=== PATIENT | male | born 2000 | race Two or more races ===

== ENCOUNTER 2023-03-14 18:26 | Emergency (ER) | payer BC, OTHER ==
[~2023-03-14] VITALS: Ht 182.9 cm; Wt 49.5 kg
[2023-03-14] MEDS ORDERED: SODIUM CHLORIDE 0.9% 1,000 ML IVB ONE (19:00)
[2023-03-14 19:25] LABS: Basophils # (auto) 0 10 ^3/uL (0-0.2); Basophils % (auto) 0.3 % (0.0-2.0); Eosinophils # (auto) 0.1 10 ^3/uL (0-0.8); Eosinophils % (auto) 0.4 % (0.0-7.0); Hematocrit 49.2 % (41.0-53.0); Hemoglobin 16.2 g/dL (13.5-17.5); Lymphocytes # (auto) 1.4 10 ^3/uL (0.4-5.4); Lymphocytes % (auto) 9.2 % (10.0-50.0); Mean Corpuscular Hemoglobin 27.4 pg (28.0-32.0); Mean Corpuscular Hgb Conc. 32.9 g/dL (32.0-36.0); Mean Corpuscular Volume 83.4 fL (80.0-100.0); Monocytes # (auto) 0.9 10 ^3/uL (0-1.3); Neutrophils # (auto) 13.1 10 ^3/uL (1.6-8.6); Neutrophils % (auto) 84.1 % (37.0-80.0); Red Blood Cells 5.91 10^6/uL (4.5-5.90); White Blood Cell 15.6 10^3/uL (4.4-10.8)
[2023-03-14 19:34] LABS: Albumin 3.9 g/dL (3.4-5.0); Anion Gap 7 (5-15); Blood Alcohol < 3.0 mg/dL (<10); Blood Urea Nitrogen 11 mg/dL (7-18); Calcium 8.9 mg/dL (8.5-10.1); Carbon Dioxide 24 mmol/L (21-32); Chloride 105 mmol/L (98-107); Glucose 103 mg/dL (74-106); Magnesium 2.7 mg/dL (1.6-2.6); Sodium 136 mmol/L (136-145)
[2023-03-14 19:40] LABS: Alanine Aminotransferase 49 U/L (16-61); Alkaline Phosphatase 55 U/L (45-117); Aspartate Aminotransferase 45 U/L (15-37); BUN/Creatinine Ratio 10.8 (10.0-20.0); Bilirubin, Total 0.3 mg/dL (0.2-1.0); GFR African American 117 mL/min; GFR Non-African American 97 mL/min; Total Protein 7.9 g/dL (6.4-8.2)
[2023-03-14 21:58] LABS: Urine Bacteria NONE SEEN /hpf (None Seen); Urine Blood Negative /uL (Negative); Urine Mucus FEW (None Seen); Urine Specific Gravity 1.028 (1.001-1.035); Urine WBC 1 /hpf (0 - 3)
[2023-03-14 22:33] LABS: Alcohol, Urine < 3.0 mg/dL (0-10); Amphetamine Screen, Urine POSITIVE (NEGATIVE); Barbiturate Scree,Urine NEGATIVE (NEGATIVE); Benzodiazephine Screen, Urine NEGATIVE (NEGATIVE); Cocaine Screen, Urine POSITIVE (NEGATIVE); Opiate Scree,Urine NEGATIVE (NEGATIVE)
[2023-03-14 22:39] LABS: Phencyclidine Screen, Urine NEGATIVE (NEGATIVE)
[2023-03-14 22:40] LABS: Cannabinoid Screen, Urine POSITIVE (NEGATIVE)
[2023-03-14 23:08] VITALS: BP 129/52
== END 2023-03-14 23:11 | disposition home or self-care (01) ==
LOC: ER 18:26 → EDBD 18:26 → ER 23:09
DX: R56.9 Unspecified convulsions (principal); F14.10 Cocaine abuse, uncomplicated; F15.10 Other stimulant abuse, uncomplicated; F12.90 Cannabis use, unspecified, uncomplicated; F17.210 Nicotine dependence, cigarettes, uncomplicated; Z98.890 Other specified postprocedural states
CPT/HCPCS: 36415; 70450; 71045; 80053; 80307; 80320; 81001; 83735; 85025; 96360; 99285; J7030

== ENCOUNTER 2023-08-03 11:26 | Emergency (ER) | payer BC ==
[~2023-08-03] VITALS: Ht 175.3 cm; Wt 88.4 kg
[2023-08-03 11:43] VITALS: BP 125/62
[2023-08-03] MEDS ORDERED: IBUP1TAB5 PO (14:23)
[2023-08-03] MEDS ORDERED: KETOROLAC TROMETH 30 MG/ML 1ML VIAL IM ONE (14:30)
[2023-08-03 14:45] VITALS: PULSE 80; RESP 16; O2SAT 99
== END 2023-08-03 15:00 | disposition home or self-care (01) ==
LOC: ER 11:26
DX: S43.492A Other sprain of left shoulder joint, initial encounter (principal); F17.210 Nicotine dependence, cigarettes, uncomplicated; Z79.899 Other long term (current) drug therapy; W18.39XA Other fall on same level, initial encounter; Y93.23 Activity, snow (alpine) (downhill) skiing, snowboarding, sledding, tobogganing and snow tubing; Y92.89 Other specified places as the place of occurrence of the external cause; Y99.8 Other external cause status
CPT/HCPCS: 73030; 96372; 99283; J1885

== ENCOUNTER 2023-08-09 15:53 | Emergency (ER) | payer BC ==
[~2023-08-09] VITALS: Ht 175.3 cm; Wt 83.4 kg
[~2023-08-09 15:53] MED LIST: IBUP1TAB5 PO
[2023-08-09] MEDS ORDERED: KETOROLAC TROMETH 60MG/2ML VIAL IM ONE (16:30)
[2023-08-09 16:33] VITALS: O2SAT 98
[2023-08-09] MEDS ORDERED: NAPR1CAP OR (17:31)
[2023-08-09] MEDS ORDERED: HYDR-4798 PO (17:32)
[2023-08-09] MEDS ORDERED: ZOFR4T PO (17:32)
[2023-08-09] MEDS ORDERED: IBUPROFEN 800 MG TAB PO ONE (17:45)
[2023-08-09 18:00] VITALS: BP 127/62; PULSE 90; RESP 15; O2SAT 99
[2023-08-09] MEDS ORDERED: ONDANSETRON ODT 4 MG TAB PO ONE ×2 (18:00)
[2023-08-09] MEDS ORDERED: HYDROcodone-ACET 10/325MG TAB PO ONE ×2 (18:00)
== END 2023-08-09 18:18 | disposition home or self-care (01) ==
LOC: ER 15:53
DX: S43.101A Unspecified dislocation of right acromioclavicular joint, initial encounter (principal); F17.210 Nicotine dependence, cigarettes, uncomplicated; Z79.899 Other long term (current) drug therapy; W18.39XA Other fall on same level, initial encounter; Y93.23 Activity, snow (alpine) (downhill) skiing, snowboarding, sledding, tobogganing and snow tubing; Y92.89 Other specified places as the place of occurrence of the external cause; Y99.8 Other external cause status
CPT/HCPCS: 73030; 96372; 99284; J1885; Q0162

== ENCOUNTER 2023-10-22 06:25 | Day surgery (SDC) | payer BC ==
[2023-10-21 14:16] LABS: Basophils # (auto) 0 10 ^3/uL (0-0.2); Basophils % (auto) 0.3 % (0.0-2.0); Eosinophils # (auto) 0.1 10 ^3/uL (0-0.8); Eosinophils % (auto) 1.1 % (0.0-7.0); Hematocrit 45.3 % (41.0-53.0); Hemoglobin 15.4 g/dL (13.5-17.5); Lymphocytes # (auto) 2.3 10 ^3/uL (0.4-5.4); Lymphocytes % (auto) 27.3 % (10.0-50.0); Mean Corpuscular Hemoglobin 28.8 pg (28.0-32.0); Mean Corpuscular Volume 84.8 fL (80.0-100.0); Monocytes # (auto) 0.4 10 ^3/uL (0-1.3); Monocytes % (auto) 4.9 % (0.0-12.0); Neutrophils # (auto) 5.6 10 ^3/uL (1.6-8.6); Neutrophils % (auto) 66.4 % (37.0-80.0); Nucleated Red Blood Cells % 0.1 %; Red Blood Cells 5.34 10^6/uL (4.5-5.90); White Blood Cell 8.5 10^3/uL (4.4-10.8)
[2023-10-21 14:31] LABS: Urine Bacteria NONE SEEN /hpf (None Seen); Urine Blood Negative /uL (Negative); Urine Clarity HAZY (Clear); Urine Color Yellow (Yellow); Urine Mucus FEW (None Seen); Urine Protein, UAD 1+ (Negative); Urine Specific Gravity 1.026 (1.001-1.035); Urine Urobilinogen Normal (Negative); Urine WBC 2 /hpf (0 - 3); Urine pH 8.5 (5.0-8.0)
[2023-10-21 14:37] LABS: INR 1.02 (0.9-1.15); Partial Thromboplastin Time 32.1 SEC (24.5-34.5); Prothrombin Time 10.7 sec (9.3-11.8)
[2023-10-21 15:01] LABS: Alanine Aminotransferase 13 U/L (7-40); Alkaline Phosphatase 78 U/L (46-116); Anion Gap 6 (5-15); Aspartate Aminotransferase 17 U/L (13-40); BUN/Creatinine Ratio 11.6 (10.0-20.0); Bilirubin, Total 0.4 mg/dL (0.2-1.0); Blood Urea Nitrogen 11 mg/dL (9-23); Calcium 9.9 mg/dL (8.5-10.1); Carbon Dioxide 30 mmol/L (20-30); Chloride 105 mmol/L (98-107); Glucose 93 mg/dL (74-106); Potassium 4.6 mmol/L (3.5-5.1); Sodium 141 mmol/L (136-145); Total Protein 7.3 g/dL (5.7-8.2)
[~2023-10-22] VITALS: Ht 172.7 cm; Wt 86.2 kg
[~2023-10-22 06:25] MED LIST changes: +HYDR-4798 PO; -IBUP1TAB5 PO; +NAPR1CAP OR; +ZOFR4T PO
[2023-10-22] MEDS ORDERED: ceFAZolin 2 GM/D5W50ml 50 ML IV ONE (06:34)
[2023-10-22] MEDS ORDERED: ROPIVACAINE 0.5% (5MG/ML) 20ML AMPULE IJ ONE (07:03)
[2023-10-22] MEDS ORDERED: SUCCINYLCHOLINE CHLORIDE 20 MG/ML 10ML VIAL IV ONE (07:03)
[2023-10-22] MEDS ORDERED: PROPOFOL 10 MG/ML 20 ML IV ONE (07:06)
[2023-10-22] MEDS ORDERED: fentaNYL CITRATE 100 MCG/2 ML VL ONE (07:06)
[2023-10-22] MEDS ORDERED: BUPIVACAINE HCL 50 ML ONE (07:17)
[2023-10-22] MEDS ORDERED: EPINEPHrine HCL 1 MG/1 ML AMP ONE (07:17)
[2023-10-22] MEDS ORDERED: ONDANSETRON HCL 4 MG/2 ML VIAL ONE (07:59)
[2023-10-22] MEDS ORDERED: DexAMETHasone SOD PHOS 10MG/1ML VIAL INJ ONE (07:59)
[2023-10-22] MEDS ORDERED: BACITRACIN TOP OINT 1 UD PKG TOP ONE (08:24)
[2023-10-22] MEDS ORDERED: SUGAMMADEX 200mg/2ml Vial (100MG/ML) IV ONE (10:04)
[2023-10-22] MEDS ORDERED: MEPERIDINE HCL (25 MG/ML) 1ML VIAL ONE ×2 (10:09→10:11)
[2023-10-22 10:39] VITALS: TEMP 97; O2SAT 98
[2023-10-22] MEDS ORDERED: ONDANSETRON HCL 4 MG/2 ML VIAL IV PRN (10:45)
[2023-10-22] MEDS ORDERED: MEPERIDINE HCL (25 MG/ML) 1ML VIAL IV PRN (10:45)
[2023-10-22] MEDS: HYDROmorphone HCL 2 MG/ML VL/or syr ONE (11:13)
[2023-10-22] MEDS: HYDROmorphone HCL 2 MG/ML VL/or syr IV PRN (11:25)
[2023-10-22 11:55] VITALS: BP 159/81; PULSE 83; RESP 15; O2SAT 97
[2023-10-22] MEDS ORDERED: HYDR1TAB97 PO (12:06)
== END 2023-10-22 12:10 | disposition home or self-care (01) ==
LOC: SUR 06:25
PROVIDERS: ATTEND Orthopaedic Surgery Sports Medicine
DX: M19.011 Primary osteoarthritis, right shoulder (principal); S43.101A Unspecified dislocation of right acromioclavicular joint, initial encounter; M94.211 Chondromalacia, right shoulder; X58.XXXA Exposure to other specified factors, initial encounter; Y93.89 Activity, other specified; Y92.89 Other specified places as the place of occurrence of the external cause; Y99.8 Other external cause status; F41.9 Anxiety disorder, unspecified; F17.210 Nicotine dependence, cigarettes, uncomplicated; Z79.891 Long term (current) use of opiate analgesic; Z98.890 Other specified postprocedural states
CPT/HCPCS: 23552; 36415; 73020; 76000; 80053; 81001; 85025; 85610; 85730; C1713; C1762; J0171; J0330; J0690; J1100; J1170; J2175; J2405; J2704; J2795; J3010; J3490; A4565

== ENCOUNTER 2023-11-03 12:03 | Emergency (ER) | payer BC ==
[~2023-11-03] VITALS: Ht 172.7 cm; Wt 84.0 kg
[~2023-11-03 12:03] MED LIST changes: +HYDR1TAB97 PO
[2023-11-03 14:12] VITALS: TEMP 98.9; O2SAT 96
[2023-11-03] MEDS ORDERED: HYDR-4798 PO (14:33)
[2023-11-03 14:45] VITALS: BP 123/73; PULSE 88; RESP 18
[2023-11-03] MEDS: HYDROmorphone HCL 2 MG/ML VL/or syr IM ONE (14:45)
== END 2023-11-03 14:59 | disposition home or self-care (01) ==
LOC: ER 12:03
DX: S43.101A Unspecified dislocation of right acromioclavicular joint, initial encounter (principal); G89.29 Other chronic pain; M25.511 Pain in right shoulder; F17.210 Nicotine dependence, cigarettes, uncomplicated; Z79.899 Other long term (current) drug therapy; X58.XXXA Exposure to other specified factors, initial encounter; Y93.89 Activity, other specified; Y92.89 Other specified places as the place of occurrence of the external cause; Y99.8 Other external cause status
CPT/HCPCS: 96372; 99283; J1170